=== PATIENT | male | born 2000 | race Two or more races ===

== ENCOUNTER 2022-05-02 18:43 | Emergency (ER) | payer SELFPAY ==
[~2022-05-02] VITALS: Ht 175.3 cm; Wt 62.0 kg
[2022-05-02] MEDS ORDERED: CYCLOBENZAPRINE HCL 10 MG TAB PO ONE (20:00)
[2022-05-02] MEDS ORDERED: KETOROLAC TROMETH 60MG/2ML VIAL IM ONE (20:00)
[2022-05-03 02:03] VITALS: BP 112/75
== END 2022-05-03 02:33 | disposition home or self-care (01) ==
LOC: ER 18:43
DX: S16.1XXA Strain of muscle, fascia and tendon at neck level, initial encounter (principal); V43.52XA Car driver injured in collision with other type car in traffic accident, initial encounter; Y93.89 Activity, other specified; Y92.410 Unspecified street and highway as the place of occurrence of the external cause; Y99.8 Other external cause status